=== PATIENT | female | born 1965 | race Caucasian/White ===

== ENCOUNTER → 2017-08-31 | Outpatient (CLI) | payer OTHER ==
[~2017-08-31] MED LIST: ARMOUR THYROID60 MG PO; CYMBALTA 60MG60 MG PO; DEXILANT60 MG PO; FLEXERIL 1010 MG/TAB PO; GLUCOPHAGE1000 MG PO; NEURONTIN300 MG/CAP PO; RESTORIL 1515 MG/CAP PO
== END ==
LOC: COL.RAD 10:39
DX: K59.00 Constipation, unspecified (principal)
CPT/HCPCS: Q9967

== ENCOUNTER → 2018-04-13 | Outpatient (CLI) | payer OTHER | LOC: COL.RAD 13:53 | DX: M24.152 Other articular cartilage disorders, left hip (principal); Z98.890 Other specified postprocedural states; Z87.828 Personal history of other (healed) physical injury and trauma | CPT/HCPCS: A9585; Q9967 ==

== ENCOUNTER → 2019-01-19 | Outpatient (CLI) | payer OTHER | LOC: COL.RAD 07:53 | DX: M47.26 Other spondylosis with radiculopathy, lumbar region (principal); M99.73 Connective tissue and disc stenosis of intervertebral foramina of lumbar region ==

== ENCOUNTER → 2019-11-12 | Outpatient (CLI) | payer OTHER | LOC: COL.ER 10:07 | DX: Z20.828 Contact with and (suspected) exposure to other viral communicable diseases (principal) ==

== ENCOUNTER → 2021-09-16 | Outpatient (CLI) | payer OTHER | LOC: COL.RAD 07:39 | DX: M51.37 Other intervertebral disc degeneration, lumbosacral region (principal); Q05.7 Lumbar spina bifida without hydrocephalus; M54.2 Cervicalgia ==

== ENCOUNTER → 2023-10-05 | Outpatient (CLI) | payer OTHER ==
[~2023-10-05] MED LIST changes: +Gadoterate 15 ML VIAL IV ONE
== END ==
LOC: COL.RAD 08:45
DX: M51.17 Intervertebral disc disorders with radiculopathy, lumbosacral region (principal); M48.061 Spinal stenosis, lumbar region without neurogenic claudication
CPT/HCPCS: A9575